=== PATIENT | male | born 1990 ===

== ENCOUNTER → 2018-03-24 | Day surgery (SDC) | payer OTHER ==
[2018-03-20 08:32] VITALS: Ht 185.4 cm; Wt 80.0 kg
[~2018-03-24] VITALS: Ht 185.4 cm; Wt 80.0 kg
[~2018-03-24] MED LIST: ATROPINE SULFATE 0.1 MG/ML 5ML SYR IV PRN; BACITRACIN OINT 15 GM TUBE ONE; BUPIVACAINE/EPINEPHRINE 0.5% MPF 1:200,000 30 ML VIAL ONE; CEFAZOLIN 2000MG IV PUSH 15 ML IV SCH; DEXAMETHASONE SOD INJ 4 MG/ML VIAL ONE; EpHEDrine SULFATE INJ 50 MG/ML AMP IV PRN; FENTANYL CITRATE INJ 50 MCG/1 ML 2 ML VIAL IV PRN; FENTANYL CITRATE INJ 50 MCG/1 ML 2 ML VIAL ONE; FLUMAZENIL 0.1 MG/1 ML 10 ML VIAL IV PRN; IBUPROFEN 600 MG TAB PO PRN; KETOROLAC TROMETHAMINE 30 MG/ML VIAL IV. PRN; LIDOCAINE HCL 2% 2 ML VIAL (20MG/ML) ONE; MIDAZOLAM HCL 1 MG/ML 2ML VIAL ONE; NALOXONE HCL 0.4 MG/1 ML VIAL/CARP IV PRN; ONDANSETRON INJ 2 MG/ML 2 ML VIAL IV PRN; ONDANSETRON INJ 2 MG/ML 2 ML VIAL ONE; PROMETHAZINE HCL INJ 12.5 MG in SODIUM CHLORIDE 0.9% 50ML 50 ML IV PRN; PROPOFOL IV EMULSION 10 MG/ML 20 ML VIAL ONE; SODIUM CHLORIDE 0.9% 1000ML 1,000 ML IV SCH
[2018-03-24] MEDS: LACTATED RINGER'S 1000ML 1,000 ML IV SCH ×2 (07:28→09:26)
--- NOTE | 2018-03-24 08:00 | History and Physical ---
History & Physical Date Mar 24, 2018. History of Present Illness The patient is a 27 year old male with complaints of scalp cysts times 4. uncomfortable particularly with combing hair. Additional History Hepatic Disease: No Endocrine Disorder: No Kidney Disease: No Hypertension: No Heart Disease: No Bleeding Tendencies: No Infectious Diseases: No Allergies Coded Allergies: No Known Allergies (Unverified , 03/24/18) Home Medications No Active Prescriptions or Reported Meds Physical Examination Skin: warm/dry, no rash Eyes: sclerae normal Head: normocephalic, atraumatic, + pertinent finding (pilar cysts times 4 on scalp. ) Neck: trachea midline Respiratory/Chest: no respiratory distress Neurologic/Psych: alert, oriented x 3 Diagnosis scalp cysts times 4 Plan of Treatment discussed options/risks ok to proceed with excision of scalp cysts times 4.
--- NOTE | 2018-03-24 08:01 | Discharge Instructions-[facility]urgCtr ---
Discharge Instructions Date of Service Mar 24, 2018. Visit Reason for Visit: Trichilemmial Cyst, Scalp X 4 Discharge Discharge Diagnosis / Problem: scalp cysts times 4 Discharge Goals Goal(s): Therapeutic intervention Activity Recommendations Activity Limitations: resume your previous activity Shower/Bathe: tomorrow Anesthesia . Post Anesthesia Instructions: If you have had General Anesthesia or IV Sedation: * Do not drive today. * Resume driving when surgeon permits. * Do not make important decisions or sign legal documents today. * Call surgeon for: 1. Temperature elevations greater than 101 degrees F. 2. Uncontrollable pain. 3. Excessive bleeding. 4. Persistent nausea and vomiting. 5. Medication intolerance (nausea, vomiting or rash). * For nausea and vomiting use only clear liquids such as: tea, soda, bouillon until nausea subsides, then gradually increase diet as tolerated. * If you have any concerns or questions, call your surgeon's office. If physician is unavailable and it is an emergency, call 911 or go to the nearest emergency room. . Diet Recommendations Home Diet: resume previous diet Pending Studies Studies pending at discharge: yes List of pending studies: path report Medical Emergencies . Who to Call and When: Medical Emergencies: If at any time you feel your situation is an emergency, please call 911 immediately. . Non-Emergent Contact Non-Emergency issues call your: Primary Care Provider, Surgeon Call Non-Emergent contact if: wound has increased drainage, wound has increased redness, wound has increased pain . . "Provider Documentation" section prepared by Farzad Zhao. .
--- NOTE | 2018-03-24 08:56 | [facility] Post Operative Brief Note ---
Immediate Operative Summary Operative Date Mar 24, 2018. Pre-Operative Diagnosis TRICHILEMMIAL CYST, SCALP X4 Post-Operative Diagnosis SAME PREOP Procedure(s) Performed Excision Of Scalp Cysts Times Four Surgeon DR. Gris PASTOR Program Director Cable Television Surgeon(s) NONE Estimated Blood Loss 10 ML Findings Consistent with Post-Op Diagnosis Specimens A. SCALP LESION B. PILAR CYSTS OF SCALP Anesthesia Type General Complication(s) none
--- NOTE | 2018-03-24 09:02 | [facility] Operative Report ---
Operative Report Operative Date Mar 24, 2018. Pre-Operative Diagnosis TRICHILEMMIAL CYST, SCALP X4 Post-Operative Diagnosis SAME PREOP Procedure(s) Performed Excision Of Scalp Cysts Times Four Surgeon DR. Gris PASTOR Roller Bearing Inspector Surgeon(s) NONE Estimated Blood Loss 10 ML Specimens A. SCALP LESION B. PILAR CYSTS OF SCALP Anesthesia Type General Complication(s) none Description of Procedure After informed consent was obtained the patient was brought to the operating room placed in supine position. After successful placement of the laryngeal mask airway the hair was matted down around the palpable cysts using K-Y jelly. We subsequently prepped each area with Betadine prep. The entire scalp was then draped in sterile fashion. 1 of the 4 lesions was more like a verruca then a pilar cyst and I excised this with an elliptical incision and sent to pathology. The bleeding was controlled using electrocautery and I closed the scalp over the defect using 4-0 Monocryl in simple interrupted fashion. The other 3 cysts were consistent with pilar cyst. Incisions directly over the palpable lesions were made and carried down through the soft tissue using cautery. I was then able to extract the cysts and we sent them to pathology. Each wound was then irrigated and closed using 4-0 Monocryl in simple interrupted fashion. Marcaine was injected around each lesion for postoperative analgesia. Antibiotic ointment was placed as a dressing. The patient was then awakened and extubated transferred recovery in stable condition. This is all range in size from 1-1.5 cm. I attest to the content of the Intraoperative Record and any orders documented therein. Any exceptions are noted below.
--- NOTE | 2018-03-24 09:35 | Anesthesia Progress Nt - [facility] ---
Anesthesia Post Op Note Date & Time Mar 24, 2018 at 09:35 Vital Signs Pain Intensity: 6 Vital Signs Past 12 Hours Date Time Temp Pulse Resp B/P (MAP) Pulse Ox O2 Delivery O2 Flow Rate FiO2 03/24/18 09:31 125/78 03/24/18 09:30 36.5 86 16 125/78 (71) 100 Room Air 03/24/18 09:29 83 4 03/24/18 09:29 82 4 99 03/24/18 09:26 122/77 03/24/18 09:24 92 16 03/24/18 09:24 89 16 100 03/24/18 09:21 108/54 03/24/18 09:19 60 15 100 03/24/18 09:19 59 15 03/24/18 09:18 60 15 100 03/24/18 09:18 59 15 03/24/18 09:16 107/57 03/24/18 09:13 67 17 100 03/24/18 09:13 67 17 03/24/18 09:11 105/53 03/24/18 09:08 72 25 100 03/24/18 09:08 73 25 03/24/18 09:06 116/60 03/24/18 09:04 113/63 03/24/18 09:03 36.3 84 16 113/63 99 Mask 5 03/24/18 07:12 36.7 76 18 131/74 (93) 100 Room Air Notes Mental Status: alert / awake / arousable, participated in evaluation Pt Amnestic to Procedure: Yes Nausea / Vomiting: adequately controlled Pain: adequately controlled Airway Patency, RR, SpO2: stable & adequate BP & HR: stable & adequate Hydration State: stable & adequate Anesthetic Complications: no major complications apparent
[2018-03-24 09:51] VITALS: TEMP 36.5
[2018-03-24 09:55] VITALS: BP 110/65; PULSE 55; O2SAT 100
== END | disposition home or self-care (01) ==
LOC: X.SURG 07:05
PROVIDERS: ATTEND Surgery
DX: L72.0 Epidermal cyst (principal); L72.11 Pilar cyst